=== PATIENT | male | born 1975 | race African-American/Black ===

== ENCOUNTER 2025-05-25 05:58 | Emergency (ER) | payer OTHER ==
[~2025-05-25] VITALS: Ht 193 cm; Wt 127.0 kg
[~2025-05-25 05:58] MED LIST: LEVE1000 MT; NIFE-33 MT
[2025-05-25 06:08] VITALS: O2SAT 98
[2025-05-25] MEDS ORDERED: LORAZEPAM 2MG/ML UD SYRINGE ONE (06:20)
[2025-05-25] MEDS: LEVETIRACETAM 1000MG PREMIX 100 ML IV NR (06:30)
[2025-05-25] MEDS: LORAZEPAM 2MG/ML UD SYRINGE IV NR (06:31)
[2025-05-25 07:16] LABS: BASOPHILS % 0.3 % (0.0-2.0); EOSINOPHILS % 1.0 % (0.0-5.0); HEMATOCRIT. 43.0 % (42.0-52.0); HEMOGLOBIN. 14.3 g/dL (14.0-18.0); LYMPHOCYTES % 7.2 % (20.0-50.0); MEAN PLATELET VOLUME 9.5 fl (7.4-10.4); MONOCYTES % 6.7 % (2.0-8.0); NEUTROPHILS % 84.8 % (40.0-76.0); PLATELET 176 x1000/uL (130-400); RED BLOOD CELL COUNT 4.27 mill/uL (4.7-6.1); RED CELL DISTRIBUTION WIDTH 13.5 % (11.6-14.6)
[2025-05-25 07:25] LABS: CREATININE 0.9 mg/dL (0.6-1.3)
[2025-05-25 07:26] LABS: TROPONIN I HIGH SENSITIVITY 8 ng/L (3.0-53); UREA NITROGEN BLOOD 11 mg/dL (9-23); VALPROIC ACID 21.0 ug/mL (50-100)
[2025-05-25 07:27] LABS: ASPARTATE AMINOTRANSFERASE 14 IU/L (<34); BILIRUBIN DIRECT < 0.1 mg/dL (<=3.0)
[2025-05-25 07:28] LABS: BILIRUBIN TOTAL 0.3 mg/dL (0.1-1.0); PROTEIN TOTAL 7.0 g/dL (6.0-8.3)
[2025-05-25 07:29] LABS: CARBAMAZEPINE < 0.4 ug/mL (4-12); PHENOBARBITAL < 3.0 ug/mL (15.0-40.0); PHENYTOIN < 2.0 ug/mL (10-20)
[2025-05-25] MEDS: HYDRALAZINE 20MG/ML VIAL IV ONE (09:41)
[2025-05-25 09:51] VITALS: BP 183/92; PULSE 95; RESP 26; TEMP 36.8; O2SAT 97
== END 2025-05-25 10:09 | disposition short-term general hospital (02) ==
LOC: ER 05:58 → CANBEDREQ 08:31 → ER 10:09
DX: R56.9 Unspecified convulsions (principal); F10.90 Alcohol use, unspecified, uncomplicated; F12.90 Cannabis use, unspecified, uncomplicated; I10 Essential (primary) hypertension; R06.02 Shortness of breath; I67.82 Cerebral ischemia; Z79.899 Other long term (current) drug therapy; Y09 Assault by unspecified means
CPT/HCPCS: 80076; 80048; 80320; 80156; 80185; 83880; 80184; 80165; 85025; 84484; 36415; 71045; 70450; 93005; 96365; 96375; 99285; J1953; J0360; J2060; Z7610; G0480